=== PATIENT | female | born 1950 | race Two or more races ===

== ENCOUNTER → 2018-02-21 | Outpatient (CLI) | payer MEDICARE, SELFPAY ==
[2018-02-21 09:51] LABS: Adenovirus F 40/41 Not Detected (NOT DETECT); Astrovirus Not Detected (NOT DETECT); Campylobacter Sp Not Detected (NOT DETECT); Cryptosporidium Not Detected (NOT DETECT); Cyclospora Cayetanensis Not Detected (NOT DETECT); E. Coli O157 Not Detected (NOT DETECT); Entamoeba Histolytica Not Detected (NOT DETECT); Enteroaggregative E. coli-EAEC Not Detected (NOT DETECT); Enteropathogenic E. coli-EPEC Not Detected (NOT DETECT); Enterotoxigenic E. coli-ETEC Not Detected (NOT DETECT); Giardia Lamblia Not Detected (NOT DETECT); Norovirus GI/GII Not Detected (NOT DETECT); Plesiomonas Shigelloides Not Detected (NOT DETECT); Rotavirus A Not Detected (NOT DETECT); Salmonella Sp Not Detected (NOT DETECT); Sapovirus Not Detected (NOT DETECT); Shiga Toxin-prod E. coli-STEC Not Detected (NOT DETECT); Shigella/Enteroin E. coli-EIEC Not Detected (NOT DETECT); Vibrio Cholerae Not Detected (NOT DETECT); Vibrio Sp Not Detected (NOT DETECT); Yersinia Enterocolitica Not Detected (NOT DETECT)
== END ==
LOC: LAB SHORT 07:30 → LAB EV 07:30
PROVIDERS: Physician Assistant
DX: R19.7 Diarrhea, unspecified (principal)
CPT/HCPCS: 87507

== ENCOUNTER → 2019-08-12 | Outpatient (CLI) | payer MEDICARE | LOC: PLD 14:16 → LAB SHORT 14:16 | DX: D23.72 Other benign neoplasm of skin of left lower limb, including hip (principal) | CPT/HCPCS: 88305 ==

== ENCOUNTER 2021-08-23 06:18 | Day surgery (SDC) | payer MEDICARE ==
[~2021-08-23] VITALS: Ht 167.6 cm; Wt 52.7 kg
[2021-08-23] MEDS ORDERED: METF500 PO (06:50)
[2021-08-23] MEDS ORDERED: LISI5 PO (06:51)
[2021-08-23] MEDS ORDERED: LEVSOD75 PO (06:51)
[2021-08-23] MEDS ORDERED: INSULANI SC (06:52)
[2021-08-23] MEDS ORDERED: HUMALOG100 UNIT/1 SC (06:54)
--- NOTE | 2021-08-23 07:05 | NUR ---
08/23/21 0705 Pineda Figueroa CALL LIGHT WITHIN REACH
== END 2021-08-23 08:35 | disposition home or self-care (01) ==
LOC: ORSCSDS 06:18
PROVIDERS: Ophthalmology
PROC: 080P0ZZ Alteration of Left Upper Eyelid, Open Approach (ICD-10-PCS; principal; 2021-08-23 07:30)
PROC: 080N0ZZ Alteration of Right Upper Eyelid, Open Approach (ICD-10-PCS; principal; 2021-08-23 07:30)
DX: H02.831 Dermatochalasis of right upper eyelid (principal); H02.834 Dermatochalasis of left upper eyelid; E11.9 Type 2 diabetes mellitus without complications; Z87.891 Personal history of nicotine dependence; Z79.84 Long term (current) use of oral hypoglycemic drugs; Z79.899 Other long term (current) drug therapy
CPT/HCPCS: 82947; A9270; J2250; J2704; J3010; J7040

== ENCOUNTER 2021-12-28 10:07 | Inpatient (IN) | payer MEDICARE ==
[~2021-12-28] VITALS: Ht 162.6 cm; Wt 54.4 kg
[~2021-12-28 10:07] MED LIST: HUMALOG100 UNIT/1 SC; INSULANI SC; LEVSOD75 PO; LISI5 PO; METF500 PO
[2021-12-28 10:35] LABS: BASOPHILS ABSOLUTE AUTO 0.07 K/mm3 (0.00-0.23); BASOPHILS PERCENT AUTO 1 % (0-2); EOSINOPHILS ABSOLUTE AUTO 0.22 K/mm3 (0.00-0.68); EOSINOPHILS PERCENT AUTO 4 % (0-6); Hematocrit 38.4 % (33.0-51.0); Hemoglobin 13.4 g/dL (11.5-16.0); IMMATURE GRAN ABSOLUTE AUTO 0.01 K/mm3 (0.00-0.10); IMMATURE GRAN PERCENT AUTO 0 % (0-1); LYMPHOCYTES ABSOLUTE AUTO 1.37 K/mm3 (0.84-5.20); LYMPHOCYTES PERCENT AUTO 27 % (21-46); MONOCYTES ABSOLUTE AUTO 0.41 K/mm3 (0.16-1.47); MONOCYTES PERCENT AUTO 8 % (4-13); Mean Corpuscular HGB 31.8 pg (26.0-34.0); Mean Corpuscular HGB Conc 34.9 g/dL (31.5-36.5); Mean Corpuscular Volume 91 fL (80-100); Mean Platelet Volume 8.6 fL (9.1-12.4); NEUTROPHILS ABSOLUTE AUTO 3.05 K/mm3 (1.96-9.15); NEUTROPHILS PERCENT AUTO 59 % (41-73); Platelet Count 314 K/mm3 (150-400); RDW Coefficient Variation 12.1 % (11.7-14.2); RDW Standard Deviation 40.5 fL (35.1-46.3); Red Blood Cell Count 4.21 M/mm3 (3.80-5.20); White Blood Cell Count 5.13 K/mm3 (4.00-11.30)
[2021-12-28 10:55] LABS: Alanine Aminotransfer (ALT/SGP 17 U/L (12-78); Albumin, Blood 3.7 g/dL (3.4-5.0); Albumin/Globulin Ratio 1.1 (0.8-1.8); Alk Phos 57 U/L (50-136); Anion Gap 8 mmol/L (6-16); Aspartate Aminotrans (AST/SGOT 13 U/L (12-37); Bilirubin, Total 0.4 mg/dL (0.1-1.0); Blood Urea Nitrogen 10 mg/dL (8-24); Bun/Creatinine Ratio 12.5 (12.0-20.0); CHOL/HDL RATIO 3.3; CO2, Blood 19 mmol/L (21-32); Calcium, Blood 9.2 mg/dL (8.5-10.1); Chloride, Blood 109 mmol/L (98-108); Cholesterol 214 mg/dL (50-200); Globulin, Blood 3.3 g/dL (2.2-4.0); Glomerular Filtration Rate >60 (60-); Glucose, Blood 180 mg/dL (70-99); HDL Cholesterol 65 mg/dL (>39); International Normalized Ratio 0.98; Low Density Lipoprotein Chol 127 mg/dL (0-110); Potassium, Blood 3.8 mmol/L (3.5-5.5); Prothrombin Time Results 10.3 Sec (9.7-11.5); Sodium, Blood 136 mmol/L (136-145); Triglycerides 109 mg/dL (30-160); Very Low Density Lipoprot Chol 21 mg/dL (6-32)
[2021-12-28 14:43] LABS: Influenza A, PCR NEGATIVE (NEGATIVE); Influenza B, PCR NEGATIVE (NEGATIVE); Resp Syncytial Virus, PCR NEGATIVE (NEGATIVE); SARS-Cov-2 (COVID-19) PCR, MMC NEGATIVE (NEGATIVE)
[2021-12-29 04:09] LABS: BASOPHILS ABSOLUTE AUTO 0.05 K/mm3 (0.00-0.23); BASOPHILS PERCENT AUTO 1 % (0-2); EOSINOPHILS ABSOLUTE AUTO 0.22 K/mm3 (0.00-0.68); EOSINOPHILS PERCENT AUTO 4 % (0-6); Hematocrit 33.8 % (33.0-51.0); Hemoglobin 11.7 g/dL (11.5-16.0); IMMATURE GRAN ABSOLUTE AUTO 0.02 K/mm3 (0.00-0.10); IMMATURE GRAN PERCENT AUTO 0 % (0-1); LYMPHOCYTES ABSOLUTE AUTO 1.13 K/mm3 (0.84-5.20); LYMPHOCYTES PERCENT AUTO 19 % (21-46); MONOCYTES ABSOLUTE AUTO 0.53 K/mm3 (0.16-1.47); MONOCYTES PERCENT AUTO 9 % (4-13); Mean Corpuscular HGB 31.9 pg (26.0-34.0); Mean Corpuscular HGB Conc 34.6 g/dL (31.5-36.5); Mean Corpuscular Volume 92 fL (80-100); Mean Platelet Volume 8.6 fL (9.1-12.4); NEUTROPHILS ABSOLUTE AUTO 4.16 K/mm3 (1.96-9.15); NEUTROPHILS PERCENT AUTO 68 % (41-73); Platelet Count 250 K/mm3 (150-400); RDW Coefficient Variation 12.1 % (11.7-14.2); RDW Standard Deviation 41.3 fL (35.1-46.3); Red Blood Cell Count 3.67 M/mm3 (3.80-5.20); White Blood Cell Count 6.11 K/mm3 (4.00-11.30)
[2021-12-29 04:37] LABS: Albumin, Blood 3.1 g/dL (3.4-5.0); Anion Gap 5 mmol/L (6-16); Blood Urea Nitrogen 9 mg/dL (8-24); Bun/Creatinine Ratio 11.6 (12.0-20.0); CO2, Blood 22 mmol/L (21-32); Calcium, Blood 8.5 mg/dL (8.5-10.1); Chloride, Blood 114 mmol/L (98-108); Creatinine, Blood 0.77 mg/dL (0.40-1.00); Glomerular Filtration Rate >60 (60-); Glucose, Blood 131 mg/dL (70-99); Phosphorus, Blood 3.6 mg/dL (2.5-4.9); Potassium, Blood 3.7 mmol/L (3.5-5.5); Sodium, Blood 141 mmol/L (136-145)
--- NOTE | 2021-12-29 06:09 | NUR ---
SHIFT SUMMARY ASSUMED CARE OF PT AT 1900. PT IS A/OX4. HEART SOUNDS REGULAR, TELE SHOWED SINUS. LUNG SOUNDS CLEAR. PT WAS SBA TO BATHROOM. ANGIO SITE ON R WRIST. PT DENIES ANY PAIN. NO SWELLING NOTED. CALL LIGHT IN REACH, BED IN LOWEST POSITION.
--- NOTE | 2021-12-29 11:26 | NUR ---
Patient is sitting up in bed and alert. Pt talks about her heart attack and the surgery that followed. She voices appreciation for the hospital staff and the wonderful care and expertise in which she was handled. 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 Pt shows no signs of spiritual distress but is easily encouraged by conversations centered around peace. I reinforce helpful attitudes and practices and provide spiritual dialogue and prayer. Patient responds well and displays evidence of an elevated mood.
[2021-12-29] MEDS ORDERED: CLOP75 PO (12:49)
[2021-12-29] MEDS ORDERED: Aspir 8181 MG PO (12:49)
--- NOTE | 2021-12-29 13:07 | NUR ---
DISCHARGE TEACHING REVIEWED WITH PT, VERBALIZES UNDERSTANDING AND HAS NO FURTHER QUESTIONS OR CONCERNS AT THIS TIME. IV REMOVED, CATHETER INTACT. PT VERBALIZES UNDERSTANDING OF DISCHARGE MEDICATIONS, FOLLOW UP APPOINTMENTS AND RADIAL SITE CARE. ALL BELONGINGS SENT WITH PT IN THE CARE OF HER DAUGHTER.
--- NOTE | 2021-12-29 16:41 | NUR ---
Per Dr. Diomedes Newby discharge appropriate. Patient does not oppose discharge. Patient discharged home to residence. Date of discharge: 12/29/2021 Date of admission: 12/28/2020 Provisional diagnosis at time of admission: NSTEMI Final Diagnosis at time of discharge: bacterial NSTEMI Location: Patient is discharged home to residence: [address] [place] [address] Transportation provided by: [employer]ael/private vehicle DME Ordered: None Follow-ups needed: [facility] will contact patient to schedule hospital discharge follow-up. Informed patient [facility] will contact patient to schedule an appointment. Patient needs follow up with cardiology Dr. Deven Gerber-office will contact patient to schedule. Confirmed numbers: Patient: [phone] Provider/PCP: PAT King When: WITHIN 1 WEEK if needed Specialty: Cardiology When: Office will contact patient to schedule Comment: No barriers to discharge.
== END 2021-12-29 13:19 | disposition home or self-care (01) | DRG 247 ==
LOC: ER 10:07 → PCU 12:21
PROVIDERS: Internal Medicine Cardiovascular Disease; Student in an Organized Health Care Education/Training Program; ADMIT Family Medicine
PROC: 027135Z Dilation of Coronary Artery, Two Arteries with Two Drug-eluting Intraluminal Devices, Percutaneous Approach (ICD-10-PCS; principal; 2021-12-28)
PROC: 4A033BC Measurement of Arterial Pressure, Coronary, Percutaneous Approach (ICD-10-PCS; 2021-12-28)
PROC: 4A023N7 Measurement of Cardiac Sampling and Pressure, Left Heart, Percutaneous Approach (ICD-10-PCS; 2021-12-28)
PROC: B2111ZZ Fluoroscopy of Multiple Coronary Arteries using Low Osmolar Contrast (ICD-10-PCS; 2021-12-28)
DX: I21.4 Non-ST elevation (NSTEMI) myocardial infarction (principal); I10 Essential (primary) hypertension; E03.9 Hypothyroidism, unspecified; E11.9 Type 2 diabetes mellitus without complications; Z20.822 Contact with and (suspected) exposure to COVID-19; Z53.29 Procedure and treatment not carried out because of patient's decision for other reasons; Z88.0 Allergy status to penicillin; Z88.1 Allergy status to other antibiotic agents; Z79.4 Long term (current) use of insulin; Z79.899 Other long term (current) drug therapy
CPT/HCPCS: 0241U; 36415; 71275; 76937; 80053; 80061; 80069; 82947; 83735; 84484; 85025; 85347; 85610; 85730; 86850; 86900; 86901; 93005; 93010; 93306; 93454; 93571; 93572; 94762; 96365-59; 96366-59; 96375-59; 99152; 99153; 99285-25; A9270; C1725; C1769; C1874; C1887; C1894; C9600; J1644; J1815; J2250; J2370; J3010; J3475; J7030; J7050; Q9967

== ENCOUNTER → 2025-05-25 | Outpatient (CLI) | payer MEDICARE ==
[~2025-05-25] MED LIST changes: +Aspir 8181 MG PO; +CLOP75 PO
[2025-05-25 10:42] LABS: Albumin, Blood 3.7 g/dL (3.4-5.0); Albumin/Globulin Ratio 1.1 (0.8-1.8); Bilirubin, Total 0.3 mg/dL (0.1-1.0); Bun/Creatinine Ratio 8.3 (12.0-20.0); Calcium, Blood 9.4 mg/dL (8.5-10.1); Creatinine, Blood 0.96 mg/dL (0.40-1.00); Globulin, Blood 3.3 g/dL (2.2-4.0); Potassium, Blood 4.7 mmol/L (3.5-5.5)
[2025-05-25 14:00] LABS: Percent Saturation 17.1 % (15.0-50.0)
== END | disposition home or self-care (01) ==
LOC: LAB 09:56 → LAB SHORT 09:56
PROVIDERS: Internal Medicine Endocrinology, Diabetes & Metabolism; Physician Assistant
DX: E10.65 Type 1 diabetes mellitus with hyperglycemia (principal); E06.3 Autoimmune thyroiditis; R53.83 Other fatigue
CPT/HCPCS: 36415; 80053; 82728; 83036; 83540; 83550; 84443